=== PATIENT | male | born 1960 | race Caucasian/White ===

== ENCOUNTER 2022-02-06 12:18 | Emergency (ER) | payer BC ==
[~2022-02-06] VITALS: Ht 190.5 cm; Wt 107.0 kg
--- NOTE | 2022-02-06 12:44 | PHYS DOC ---
Past History Past Surgical History: Other Additional Past Surgical Histo: HERNIA REPAIR General Adult EDM: Chief Complaint: FLANK PAIN HPI: HPI: Patient is a 61-year-old male who presents to the emergency department for right flank pain that radiates down to his right lower quadrant that started a couple hours prior to arrival. Patient reports mild nausea. He denies vomiting, diarrhea, dysuria, difficulty initiating stream, urinary frequency or urgency, blood in his stools or fevers. He denies any history of kidney stones. Review of Systems: Review of Systems: Constitutional: See HPI GI: See HPI : HPI Musculoskeletal: See HPI Current Medications: Current Meds: Current Medications Medications (Trade) Dose Ordered Sig/Lily Start Time Stop Time Status Last Admin Dose Admin Sodium Chloride 1,000 ml @ 1,000 mls/hr Q1H 02/06/22 12:45 02/06/22 13:44 UNV Allergies: Allergies: Allergies Coded Allergies Type Severity Reaction Last Updated Verified No Known Drug Allergies 02/06/22 No Physical Exam: PE: Constitutional: Well developed, well nourished, no acute distress, non-toxic ap pearance. [] HENT: Normocephalic, atraumatic, bilateral external ears normal, oropharynx moist, no oral exudates, nose normal. [] Eyes: PERRL, EOMI, conjunctiva normal, no discharge. [] Neck: Normal range of motion, no stridor Cardiovascular:Heart rate regular rhythm, no murmur [] Lungs & Thorax: Bilateral breath sounds clear to auscultation [] Abdomen: Bowel sounds normal, soft, no tenderness, negative Hart sign, negative Rovsing sign, no abdominal guarding or rigidity, no masses, no pulsatile masses. [] Skin: Warm, dry, no erythema, no rash. [] Back: No tenderness, no CVA tenderness. [] Extremities: No tenderness, no cyanosis, no clubbing, ROM intact, no edema. [] Neurologic: Alert and oriented X 3, normal motor function, normal sensory function, no focal deficits noted. [] Psychologic: Affect normal, judgement normal, mood normal. [] Current Patient Data: Labs: Laboratory Tests Test 02/06/22 12:42 02/06/22 12:56 White Blood Count 7.9 x10^3/uL Red Blood Count 5.19 x10^6/uL Hemoglobin 15.8 g/dL Hematocrit 46.2 % Mean Corpuscular Volume 89 fL Mean Corpuscular Hemoglobin 30 pg Mean Corpuscular Hemoglobin Concent 34 g/dL Red Cell Distribution Width 13.8 % Platelet Count 226 x10^3/uL Neutrophils (%) (Auto) 86 % Lymphocytes (%) (Auto) 9 % Monocytes (%) (Auto) 4 % Eosinophils (%) (Auto) 0 % Basophils (%) (Auto) 1 % Neutrophils # (Auto) 6.8 x10^3uL Lymphocytes # (Auto) 0.7 x10^3/uL Monocytes # (Auto) 0.3 x10^3/uL Eosinophils # (Auto) 0.0 x10^3/uL Basophils # (Auto) 0.1 x10^3/uL Sodium Level 136 mmol/L Potassium Level 3.6 mmol/L Chloride Level 104 mmol/L Carbon Dioxide Level 23 mmol/L Anion Gap 9 Blood Urea Nitrogen 16 mg/dL Creatinine 1.6 mg/dL Estimated GFR (Cockcroft-Gault) 44.5 BUN/Creatinine Ratio 10 Glucose Level 159 mg/dL Calcium Level 9.2 mg/dL Total Bilirubin 1.0 mg/dL Aspartate Amino Transf (AST/SGOT) 15 U/L Alanine Aminotransferase (ALT/SGPT) 29 U/L Alkaline Phosphatase 74 U/L Total Protein 6.9 g/dL Albumin 3.7 g/dL Albumin/Globulin Ratio 1.2 Lipase 114 U/L Urine Collection Type Unknown Urine Color Yellow Urine Clarity Cloudy Urine pH 7.0 Urine Specific Gruver 1.025 Urine Protein Neg Urine Glucose (UA) Neg mg/dL Urine Ketones (Stick) Neg mg/dL Urine Blood Large Urine Nitrite Neg Urine Bilirubin Neg Urine Urobilinogen Dipstick 0.2 mg/dL Urine Leukocyte Esterase Neg Urine RBC Tntc /HPF Urine WBC 0 /HPF Urine Squamous Epithelial Cells None /LPF Urine Bacteria 0 /HPF Current Medications Medications (Trade) Dose Ordered Sig/Lily Route PRN Reason Start Time Stop Time Status Last Admin Dose Admin Sodium Chloride 1,000 ml @ 1,000 mls/hr Q1H IV 02/06/22 12:45 02/06/22 13:44 02/06/22 12:52 Ondansetron HCl (Zofran) 4 mg 1X ONCE IVP 02/06/22 12:45 02/06/22 12:50 DC 02/06/22 12:52 Ketorolac Tromethamine (Toradol 15mg Vial) 15 mg 1X ONCE IVP 02/06/22 13:15 02/06/22 13:16 DC 02/06/22 13:16 Ketorolac Tromethamine (Toradol 15mg Vial) 15 mg STK-MED ONCE .ROUTE 02/06/22 13:14 02/06/22 13:15 DC Vital Signs: Vital Signs Date Time Temp Pulse Resp B/P (MAP) Pulse Ox O2 Delivery O2 Flow Rate FiO2 02/06/22 12:21 97.9 74 18 158/99 (118) 97 Room Air EKG: EKG: [] Radiology/Procedures: Radiology/Procedures: []REASON: r. flank pain PROCEDURE: CT ABDOMEN PELVIS WO CONTRAST INDICATION: Reason: r. flank pain / Spl. Instructions: / History: COMPARISON: None. TECHNIQUE: Axial CT images were obtained through the abdomen and pelvis without intravenous contrast. One or more of the following individualized dose reduction techniques were utilized for this examination: 1. Automated exposure control; 2. Adjustment of the mA and/or kV according to patient size; 3. Use of iterative reconstruction technique. FINDINGS: Fat-containing inguinal hernias. Vascular: No abdominal aortic aneurysm. Hepatobiliary: No intrahepatic biliary duct dilation. Pancreas: No peripancreatic edema. Spleen: Spleen is prominent in size. Renal/Bladder: Multiple bilateral nonobstructive renal stones. 19 mm cystic lesion within the left kidney with either dependent calcification or layering debris. Urinary bladder is partially distended. Moderate right-sided hydronephrosis and hydroureter with 3 mm right mid ureter stone. There is adjacent edema. Gastrointestinal: Colonic diverticulosis. No periappendiceal inflammatory changes. No dilated loops of bowel to suggest obstruction. Degenerative changes of the spine. IMPRESSION: * Right-sided hydronephrosis and hydroureter with adjacent edema and right mid ureter stone. Additional nonobstructive bilateral renal stones. * Left renal cystic lesion with layering high density material or calcification. Electronically signed by: Belen Aparicio MD (02/06/2022 1:12 PM) [id number] DICTATED AND SIGNED BY: BELEN APARICIO MD DATE: 02/06/22 1300 CC: EMERGENCY,DEPARTMENT; NORMA SADLER DIRECTOR [employer]PERATIONS; PCP,NO ~ Heart Score: C/O Chest Pain: N/A Risk Factors: Risk Factors: DM, Current or recent (<one month) smoker, HTN, HLP, family history of CAD, obesity. Risk Scores: Score 0 - 3: 2.5% MACE over next 6 weeks - Discharge Home Score 4 - 6: 20.3% MACE over next 6 weeks - Admit for Clinical Observation Score 7 - 10: 72.7% MACE over next 6 weeks - Early Invasive Strategies Course & Med Decision Making: Course & Med Decision Making Pertinent Labs and Imaging studies reviewed. (See chart for details) Patient presents for right flank pain that radiates to his right lower quadrant. He is also complaining of nausea. Work-up in the ER consisted of blood work including lipase, urinalysis, CT of abdomen and pelvis to rule out kidney stone. Patient treated with IV fluids, pain medication and nausea medication. Patient CBC is unremarkable, creatinine is 1.65 and he has a normal GFR. No urinary tract infection noted. Patient does have blood in his urine. CT abdomen and pelvis shows a 3 mm right mid ureter stone with hydronephrosis and hydroureter. Following treatment in the emergency department, he reports that his pain has improved. Patient will be discharged home with Flomax, nausea and pain medication. I discussed with patient all findings and diagnostic testing as well as the need to follow-up with PCP for further evaluation and treatment or return to the ER if any new or worsening symptoms. Strict return precautions were also discussed at length. Patient voiced understanding and agreement with the plan. Patient is hemodynamically stable at the time of disposition. Kimberly Disclaimer: Kimberly Disclaimer: This electronic medical record was generated, in whole or in part, using a voice recognition dictation system. Departure Departure: Impression: Primary Impression: Kidney stone Disposition: HOME / SELF CARE / HOMELESS Condition: GOOD Referrals: PCP,NO (PCP) Patient Instructions: Kidney Stones Additional Instructions: You were seen in the ER today for flank pain. You have a kidney stone that will hopefully pass. We are writing a prescription for pain medication and a medication to help dilate the ureter so that you can pass the stone more easily. This pain medication may cause sedation so do not take any need to be alert, driving a vehicle or with alcohol. You are also being discharged home with nausea medication you can take as needed. You should strain your urine and look for the stone. You will need to follow-up with urologist as soon as possible. You should return to the ER if you have worsening pain, fever, continued bloody urine, lightheadedness, shortness of breath, chest pain or any new or concerning symptoms. Scripts Hydrocodone Bit/Acetaminophen (HYDROCODONE-APAP 5-325 ) 1 Each Tablet 1 TAB PO PRN Q6HRS PRN for PAIN for 2 Days, #8 TAB 0 Refills Prov: NORMA SADLER APRN 02/06/22 Ondansetron (ONDANSETRON ODT) 4 Mg Tab.rapdis 1 TAB PO PRN Q6-8HRS for nausea for 7 Days, #28 TAB 0 Refills Prov: NORMA SADLER APRN 02/06/22 Tamsulosin Hcl (FLOMAX) 0.4 Mg Cap.er.24h 1 CAP PO DAILY for kidney stone for 10 Days, #10 CAP 0 Refills Prov: NORMA SADLER APRN 02/06/22 NORMA SADLER APRN Feb 06, 2022 12:44
[2022-02-06] MEDS ORDERED: ONDANSETRON PF 4 MG/2 ML VIAL. IVP ONE (12:45)
[2022-02-06] MEDS ORDERED: IV NORMAL SALINE 1,000ML 1,000 ML IV SCH (12:45)
[2022-02-06 12:56] LABS: BASO # 0.1 x10^3/uL (0.0-0.2); BASO % 1 % (0-3); EOS % 0 % (0-3); HEMATOCRIT 46.2 % (39.0-53.0); HEMOGLOBIN 15.8 g/dL (13.0-17.5); LYMPH # 0.7 x10^3/uL (1.0-4.8); LYMPH % 9 % (24-48); MEAN CORPUSCULAR HEMOGLOBIN 30 pg (25-35); MEAN CORPUSCULAR HGB CONC 34 g/dL (31-37); MEAN CORPUSCULAR VOLUME 89 fL (79-100); MONO # 0.3 x10^3/uL (0.0-1.1); MONO % 4 % (0-9); NEUT # 6.8 x10^3uL (1.8-7.7); NEUT % 86 % (31-73); PLATELET COUNT 226 x10^3/uL (140-400); RED BLOOD COUNT 5.19 x10^6/uL (4.30-5.70); RED CELL DISTRIBUTION WIDTH 13.8 % (11.5-14.5); WHITE BLOOD COUNT 7.9 x10^3/uL (4.0-11.0)
[2022-02-06 13:05] LABS: CALCIUM 9.2 mg/dL (8.5-10.1); CREATININE 1.6 mg/dL (0.7-1.3); GFR 44.5; POTASSIUM 3.6 mmol/L (3.5-5.1)
[2022-02-06 13:10] LABS: ALBUMIN 3.7 g/dL (3.4-5.0); ALBUMIN/GLOBULIN RATIO 1.2 (1.0-1.7); TOTAL PROTEIN 6.9 g/dL (6.4-8.2)
[2022-02-06] MEDS ORDERED: KETOROLAC 15 MG/ML VIAL. ONE (13:14)
--- NOTE | 2022-02-06 13:14 | RAD ---
INDICATION: Reason: r. flank pain / Spl. Instructions: / History: COMPARISON: None. TECHNIQUE: Axial CT images were obtained through the abdomen and pelvis without intravenous contrast. One or more of the following individualized dose reduction techniques were utilized for this examinat ion: 1. Automated exposure control; 2. Adjustment of the mA and/or kV according to patient size; 3 . Use of iterative reconstruction technique. FINDINGS: Fat-containing inguinal hernias. Vascular: No abdominal aortic aneurysm. Hepatobiliary: No intrahepatic biliary duct dilation. Pancreas: No peripancreatic edema. Spleen: Spleen is prominent in size. Renal/Bladder: Multiple bilateral nonobstructive renal stones. 19 mm cystic lesion within the left ki dney with either dependent calcification or layering debris. Urinary bladder is partially distended. Moderate right-sided hydronephrosis and hydroureter with 3 mm right mid ureter stone. There is adjace nt edema. Gastrointestinal: Colonic diverticulosis. No periappendiceal inflammatory changes. No dilated loops o f bowel to suggest obstruction. Degenerative changes of the spine. IMPRESSION: * Right-sided hydronephrosis and hydroureter with adjacent edema and right mid ureter stone. Additi onal nonobstructive bilateral renal stones. * Left renal cystic lesion with layering high density material or calcification. Electronically signed by: Armando Aparicio MD (02/06/2022 1:12 PM) [id number]
[2022-02-06] MEDS ORDERED: KETOROLAC 15 MG/ML VIAL. IVP ONE (13:15)
[2022-02-06 13:23] LABS: BACTERIA,URINE 0 /HPF (0-FEW); CLARITY,URINE CLOUDY; COLOR,URINE YELLOW; GLUCOSE,URINE NEG (NEG); NITRITE,URINE NEG (NEG); RBC,URINE TNTC /HPF (0-2); UROBILINOGEN,URINE 0.2 mg/dL (0.2 mg/dL); WBC,URINE 0 /HPF (0-4)
[2022-02-06 13:35] VITALS: BP 146/76
[2022-02-06] MEDS ORDERED: ONDA4TAB12 PO (13:40)
[2022-02-06] MEDS ORDERED: TAMS0.4C97 PO (13:40)
[2022-02-06] MEDS ORDERED: HYDR-2155 PO (13:40)
== END 2022-02-06 13:50 | disposition home or self-care (01) ==
LOC: ER 12:18
DX: N13.2 Hydronephrosis with renal and ureteral calculous obstruction (principal)
CPT/HCPCS: 36415; 74176; 80053; 81001; 83690; 85025; 96361; 96374; 96375; 99284; J1885; J2405; J7030